=== PATIENT | female | born 1975 | race Caucasian/White ===

== ENCOUNTER 2024-10-23 13:38 | Outpatient (CLI) | payer BC | END 2024-10-23 13:39 | disposition home or self-care (01) | LOC: CSHMAMMO 13:38 | PROVIDERS: ATTEND Internal Medicine Hospice and Palliative Medicine | DX: Z12.31 Encounter for screening mammogram for malignant neoplasm of breast (principal) | CPT/HCPCS: 77063; 77067 ==